=== PATIENT | male | born 1950 | race Caucasian/White ===

== ENCOUNTER → 2017-05-07 | Outpatient (CLI) | payer MEDICARE ==
[~2017-05-07] MED LIST: ASPI-482 PO; CITA20TA9 PO; HYDR25TA9 PO; LISI40TA PO; METF500T4 PO; PANT20TA2 PO; PRAV40TA2 PO
--- NOTE | 2017-05-07 13:42 | RAD ---
Clinical indications: Right upper extremity redness and pain and swelling for 4 days. Right upper extremity surgery for gout on April 15, 2017. Findings: Duplex sonography (including garcia scale evaluation and color flow and waveform spectral analysis) of the inferior aspect of the right internal jugular vein was performed. Duplex sonography (including garcia scale evaluation and color flow and waveform spectral analysis) of the right subclavian vein as far as it could be visualized prior to it's descent underneath the medial aspect of the clavicle was performed. Duplex sonography (including garica scale evaluation and color flow and waveform spectral analysis) of the right axillary, brachial, basilic, cephalic, ulnar and radial veins was performed. Normal compressibility and augmentation of color Doppler flow after forearm compression is seen. Color-flow completely fills the lumen of these veins. Therefore, there are no sonographic findings of deep venous thrombosis within these veins. Impression: There are no sonographic findings of deep venous thrombosis within the veins discussed above of the right upper extremity. There is a hypoechoic area near the incision within the deep soft tissues which may represent a postoperative fluid collection. This measures 3.2 cm in size.
== END | disposition home or self-care (01) ==
LOC: US 10:41
PROVIDERS: ATTEND Orthopaedic Surgery
DX: M79.601 Pain in right arm (principal); M10.9 Gout, unspecified; Z98.890 Other specified postprocedural states
CPT/HCPCS: 93971

== ENCOUNTER → 2017-05-09 | Outpatient (CLI) | payer MEDICARE ==
[2017-05-09 14:10] LABS: BF CLARITY CLOUDY; BF COLOR AMBER
== END | disposition home or self-care (01) ==
LOC: LAB 09:50
DX: M70.21 Olecranon bursitis, right elbow (principal)
CPT/HCPCS: 87071; 87075; 87102; 87205; 89050; 89060

== ENCOUNTER → 2017-06-17 | Outpatient (CLI) | payer MEDICARE | END | disposition home or self-care (01) | LOC: KCIC US 07:59 | DX: E83.119 Hemochromatosis, unspecified (principal); R79.89 Other specified abnormal findings of blood chemistry; R16.2 Hepatomegaly with splenomegaly, not elsewhere classified | CPT/HCPCS: 76700 ==

== ENCOUNTER → 2020-08-19 | Outpatient (CLI) | payer MEDICARE ==
[~2020-08-19] MED LIST changes: +ALLO300T PO; +AMLO-187 PO; +ASCO500C PO; +CARV25TA2 PO; +CYAN-25 PO; +ERGO800010 PO; +FAMO40TA4 PO; +FLUT16SP NS; +FOLI0.8C PO; +HYDR-2145 PO; +HYDR-2761 PO; -HYDR25TA9 PO; +IRBE300T23 PO; +LISI-130 PO; -LISI40TA PO; +METF500T16 PO; -METF500T4 PO; +NAPR220C4 PO
== END ==
LOC: LAB 09:40
PROVIDERS: ATTEND Surgery
DX: Z01.812 Encounter for preprocedural laboratory examination (principal); Z20.822 Contact with and (suspected) exposure to COVID-19; K80.20 Calculus of gallbladder without cholecystitis without obstruction
CPT/HCPCS: U0003

== ENCOUNTER 2020-08-23 06:07 | Day surgery (SDC) | payer MEDICARE ==
[~2020-08-23] VITALS: Ht 185.4 cm; Wt 101.5 kg
[~2020-08-23 06:07] MED LIST changes: -HYDR-2761 PO; +HYDROmorphone 2 MG/ML VIAL IVP PRN; +IV RINGERS,LACTATED 1000ML 1,000 ML IV SCH; +MORPHINE SULFATE 2 MG/ML VIAL. IVP PRN; +PROCHLORPERAZINE 10 MG/2 ML VIAL. IVP PRN; +fentaNYL PF VIAL 100 MCG/2 ML VIAL IVP PRN
[2020-08-23] MEDS ORDERED: INSULIN LISPRO 100 UNIT/ML 3ML VIAL for OP,RR ONLY. SQ PRN (07:00)
[2020-08-23] MEDS ORDERED: SURGICEL HEMOSTAT 4X8 EACH. ONE (07:06)
[2020-08-23] MEDS ORDERED: BUPIVACAINE MPF 0.5% 30 ML VIAL. ONE (07:06)
[2020-08-23] MEDS ORDERED: IOHEXOL 300 MG/ML 50 ML VIAL. ONE (07:06)
[2020-08-23] MEDS ORDERED: ONDANSETRON PF 4 MG/2 ML VIAL. ONE ×2 (07:13)
[2020-08-23] MEDS ORDERED: LIDOCAINE 2% PF 5 ML VIAL. ONE (07:13)
[2020-08-23] MEDS ORDERED: ROCURONIUM 50 MG/5 ML VIAL. ONE (07:13)
[2020-08-23] MEDS ORDERED: DEXAMETHASONE SOD PHOS 20 MG/5 ML VIAL. ONE ×2 (07:13)
[2020-08-23] MEDS ORDERED: PROPOFOL 10 MG/ML (20ML) VIAL. IV ONE (07:13)
[2020-08-23] MEDS ORDERED: fentaNYL PF VIAL 100 MCG/2 ML VIAL ONE ×2 (07:14→09:40)
[2020-08-23] MEDS ORDERED: NEOSTIGMINE METHYLSULFATE 5 MG/5 ML SYRINGE. ONE (07:15)
[2020-08-23] MEDS ORDERED: GLYCOPYRROLATE 1 MG/5 ML VIAL. ONE (07:15)
[2020-08-23] MEDS ORDERED: ePHEDrine PF IN SALINE 50 MG/10 ML SYRINGE. IV ONE (08:08)
[2020-08-23] MEDS ORDERED: SEVOFLURANE 61 TO 120 MINUTES. IH ONE (08:11)
--- NOTE | 2020-08-23 08:58 | PDOC4 ---
Operative Note Operative Note Operative Note: Preoperative Diagnosis: Symptomatic cholelithiasis Postoperative Diagnosis: Same Procedure: Laparoscopic cholecystectomy with intraoperative cholangiogram Surgeons: Reese Infection Control Rn: Aarti NERI Anesthesia: Gen. Estimated Blood Loss: 10 mL Specimen: Gallbladder to pathology Drains: None Complications: None Indications: The patient is a 70 year old male who was referred due to symptomatic gallstones. Surgical treatment was offered by means of a laparoscopic cholecystectomy. The risks of surgery were discussed which include bleeding, infection, bile duct injury, bile leak, pain, the potential for additional surgeries or procedures. The patient understands and would like to proceed. Description: The patient was taken to the operating room and laid supine on the operating table. General anesthesia was performed. The abdomen was prepped with ChloraPrep and draped in a standard surgical fashion. A small infraumbilical incision was made with a scalpel. The Veress needle was then inserted and a pneumoperitoneum was then created. A 5 mm trocar was then inserted and the laparoscope was introduced. In the upper midabdomen a 5 mm trocar was inserted and in the right upper quadrant two 2.3 mm mini lap graspers were inserted. The gallbladder was retracted cephalad. The cystic duct was dissected free from surrounding tissues. One clip was placed on the duct near the gallbladder junction. An opening was made in the duct and a cholangiocatheter placed within and secured with a clip. Using contrast dye and fluoroscopy an intraoperative cholangiogram was performed that appeared unremarkable. The clip and catheter were then withdrawn. Three clips were placed on the cystic duct and it was divided. The cystic artery was then identified, dissected free, doubly clipped and divided as well. The gallbladder was then mobilized away from the liver with cautery. The umbilical 5 millimeter trocar was exchanged for an 11 millimeter trocar. The gallbladder was then placed in an endoscopic bag and extracted at the umbilical trocar site. The fa scia there was closed with an 0 Vicryl suture and infiltrated with 0.5% marcaine. All blood and irrigation fluid was suctioned and hemostasis was good. The remaining ports were removed and the pneumoperitoneum was relieved. The skin incisions were closed using 4-0 Monocryl suture. Steri-Strips and dressings were then applied. The patient tolerated the procedure well and was sent to the recovery room in stable condition. At the end of the case all counts were correct. AGAPITO VALENZUELA MD Aug 23, 2020 08:58
--- NOTE | 2020-08-23 09:01 | DISCH ---
DISCHARGE INSTRUCTIONS Condition on Discharge Condition on Discharge: Stable Activity After Discharge Activity Instructions for Disc: Other, see below (no lifting over 20 lbs X 2 weeks) Diet after Discharge Diet after Discharge: Regular Wound Incision Care Wound/Incision Care: Other, see below (may remove bandaids tomorrow and shower, steristrips fall off on their own) Follow-Up Follow up with: Dr Valenzuela in 2 weeks in office, call for appointmetn [phone] AGAPITO VALENZUELA MD Aug 23, 2020 09:01
[2020-08-23] MEDS ORDERED: HYDR-2761 PO (09:04)
--- NOTE | 2020-08-23 09:51 | RAD ---
C-arm fluoroscopy with fluoroscopic spot views Clinical indications: Intraoperative cholangiogram. Cholecystectomy. Abdominal pain. Total fluoroscopic time: 19.1 seconds. Total fluoroscopic spot views: 4. IMPRESSION: Fluoroscopic spot views demonstrate opacification of the extrahepatic biliary tree with f ree flow of contrast material from the common bile duct into the duodenum. No stricture or stone is s een within the common hepatic duct or common bile duct. Electronically signed by: Saul Trent MD (08/23/2020 9:48 AM) [id number]
[2020-08-23] MEDS ORDERED: HYDROcodone/APAP 5/325MG 1 TAB TABLET PO ONE ×2 (10:00)
[2020-08-23 10:26] VITALS: BP 149/81
--- NOTE | 2020-08-25 17:07 | PATHOLOGY ---
[facility] Accession Number: [id number] . 01 Material submitted: . gallbladder - GALLBLADDER AND CONTENTS . 01 Clinical history: . GALLSTONES CHOLECYSTECTOMY . 02 Diagnosis: Gallbladder, cholecystectomy: - Cholelithiasis. - Chronic follicular and focal early mild acute cholecystitis. ([facility] 08/25/2020) [facility] 08/25/2020 1323 Local . 02 Comment: There is no evidence of malignancy. ([facility] 08/25/2020) . 02 Electronically signed: . Daniel Fox MD, Pathologist NPI- [id number] . 01 Gross description: . Fixative: Formalin Labeled: Gallbladder and contents Specimen received: Intact cholecystectomy specimen Dimensions: 8.3 x 3.7 x 2.7 cm Serosa: Mccall-pink and smooth Lymph node: None identified Mucosa: Green and velvety Average wall thickness: 0.1-0.2 cm Calculi: Yes, multiple green-black calculi are present within the gallbladder measuring in aggregate 3.3 x 2.5 x 0.3 cm and ranging from 0.3-0.5 cm in greatest dimension Abnormalities: None identified A1- Sample Weaver body, fundus, and the cystic duct margin. [place] [facility] 08/24/2020 1043 Local . 02 Microscopic: . . . 02 Pathologist provided ICD-10: K80.12 . 02 CPT . 418514 Specimen Comment: A courtesy copy of this report has been sent to [phone], [phone] Specimen Comment: [id number] Specimen Comment: Report sent to / DR STORM Performed at: [address], [place], [place] [id number] MD Quincy Boo MD Phone: [phone] Performed at: [address] [id number] MD Daniel Fox MD Phone: [phone]
== END 2020-08-23 10:40 | disposition home or self-care (01) ==
LOC: SURG 06:07
PROVIDERS: ATTEND Surgery
DX: K80.80 Other cholelithiasis without obstruction (principal); E78.00 Pure hypercholesterolemia, unspecified; I10 Essential (primary) hypertension; G47.30 Sleep apnea, unspecified; K21.9 Gastro-esophageal reflux disease without esophagitis; M19.90 Unspecified osteoarthritis, unspecified site; M10.9 Gout, unspecified; E11.9 Type 2 diabetes mellitus without complications; F41.9 Anxiety disorder, unspecified; Z85.828 Personal history of other malignant neoplasm of skin; Z79.82 Long term (current) use of aspirin; Z79.84 Long term (current) use of oral hypoglycemic drugs; Z79.899 Other long term (current) drug therapy; Z98.890 Other specified postprocedural states; Z72.89 Other problems related to lifestyle
CPT/HCPCS: 47563; 74300; 82962; A4213; A4314; A4364; A4930; A6219; C1887; J0690; J1100; J2405; J2704; J2710; J3010; J3490; Q9967; A4452; A4657